=== PATIENT | female | born 1965 | race African-American/Black ===

== ENCOUNTER 2020-03-15 12:34 | Emergency (ER) | payer MEDICAID ==
[~2020-03-15] VITALS: Ht 165.1 cm; Wt 70.0 kg
[2020-03-15 12:52] VITALS: BP 104/64
[2020-03-15 14:33] LABS: CHLORIDE 101 mEq/L (98-107)
[2020-03-15 14:35] LABS: PROTHROMBIN TIME 10.4 sec (9.6-11.0)
[2020-03-15 14:37] LABS: BASOPHILS % 0.4 % (0.0-2.0); HEMATOCRIT. 39.1 % (36.0-48.0); HEMOGLOBIN. 13.1 g/dL (12.0-16.0); LYMPHOCYTES % 62.5 % (20.0-50.0); MEAN CORPUSCULAR HEMOGLOBIN 29.1 pg (28.0-32.0); MEAN CORPUSCULAR VOLUME 86.9 fL (81.0-99.0); MEAN PLATELET VOLUME 9.5 fl (7.4-10.4); NEUTROPHILS % 26.1 % (40.0-76.0); PLATELET 203 x1000/uL (130-400); RED CELL DISTRIBUTION WIDTH 14.4 % (11.6-14.6)
== END 2020-03-15 16:10 | disposition home or self-care (01) ==
LOC: ER 12:34
DX: U07.1 COVID-19 (principal); J18.9 Pneumonia, unspecified organism; E11.9 Type 2 diabetes mellitus without complications
CPT/HCPCS: 36415; 71045; 80053; 83605; 84145; 85025; 93005; 99285